=== PATIENT | female | born 1970 | race African-American/Black ===

== ENCOUNTER 2017-11-18 10:18 | Observation (INO) | payer BC ==
[~2017-11-18] VITALS: Ht 170.2 cm; Wt 110.7 kg
[2017-11-18] MEDS ORDERED: DEXT 5%/LR + PITOCIN 20UNITS/L 1,000 ML IV SCH (10:35)
[2017-11-18] MEDS ORDERED: NALOXONE HCL 0.4 MG/ML 1ML VIAL IM PRN (10:45)
[2017-11-18] MEDS ORDERED: METHYLERGONOVINE MALEATE 0.2 MG/ML IM PRN (10:45)
[2017-11-18] MEDS ORDERED: TERBUTALINE SULFATE 1MG/ML VIAL SUBCUT PRN (10:45)
[2017-11-18] MEDS ORDERED: CARBOPROST TROMETHAMINE 250 MCG/ML AMPUL IM PRN (10:45)
[2017-11-18] MEDS ORDERED: MAGNESIUM 4 G PREMIX 100 ML IV SCH (10:45)
[2017-11-18] MEDS ORDERED: MAGNESIUM 4 GM IV SCH (10:45)
[2017-11-18] MEDS: BETAMETHASONE ACET/BETAMET 30 MG/5 ML VIAL IM SCH (11:07)
[2017-11-18] MEDS ORDERED: LIDOCAINE HCL 1% 20ML VIAL (Pyxis) INJ ONE (11:24)
[2017-11-18] MEDS: MAGNESIUM 20 G PREMIX (L & D) 500 ML IV SCH ×2 (11:31→20:34)
[2017-11-18] MEDS: CEFAZOLIN 2,000 MG in DEXT 5% WATER 100 ML IV SCH ×2 (11:50→20:29)
[2017-11-18 12:04] LABS: BASOPHILS % 0.2 % (0.0-2.0); EOSINOPHILS % 0.1 % (0.0-5.0); HEMATOCRIT. 36.3 % (36.0-48.0); HEMOGLOBIN. 12.1 g/dL (12.0-16.0); LYMPHOCYTES % 18.1 % (20.0-50.0); MEAN CORPUSCULAR HEMOGLOBIN 29.5 pg (28.0-32.0); MEAN CORPUSCULAR VOLUME 88.4 fL (81.0-99.0); MEAN PLATELET VOLUME 8.1 fl (7.4-10.4); MONOCYTES % 3.8 % (2.0-8.0); NEUTROPHILS % 77.8 % (40.0-76.0); PLATELET 189 x1000/uL (130-400); RED BLOOD CELL COUNT 4.11 mill/uL (4.2-5.4); RED CELL DISTRIBUTION WIDTH 13.6 % (11.6-14.6)
[2017-11-18 12:09] LABS: INR 0.9; PARTIAL THROMBOPLASTIN TIME 24.6 sec (23.4-31.0); PROTHROMBIN TIME 9.4 sec (9.4-11.6)
[2017-11-18] MEDS: LACTATED RINGERS 1,000 ML IV SCH (12:14)
[2017-11-18 12:46] LABS: CLARITY URINE CLEAR (CLEAR); COLOR URINE YELLOW (YELLOW); KETONES URINE 3+ (NEGATIVE); LEUKOCYTE ESTERASE URINE NEGATIVE (NEGATIVE); NITRITE URINE NEGATIVE (NEGATIVE); OCCULT BLOOD URINE NEGATIVE (NEGATIVE); PROTEIN URINE 1+ (NEGATIVE); SPECIFIC GRAVITY URINE 1.023 (1.005-1.030); UROBILINOGEN URINE 0.2 E.U./dL (0.2-1.0)
[2017-11-18 13:14] LABS: RUBELLA IGG 173.2 IU/mL (4.99-10)
[2017-11-18 13:15] LABS: HEPATITIS B SURFACE ANTIGEN NEGATIVE
[2017-11-18 13:35] LABS: *AMPHETAMINES SCREEN URINE NEGATIVE (NEGATIVE); *BARBITURATES SCREEN URINE NEGATIVE (NEGATIVE); *BENZODIAZEPINES SCREEN URINE NEGATIVE (NEGATIVE); *COCAINE SCREEN URINE NEGATIVE (NEGATIVE); CANNABINOID URINE SCREEN NEGATIVE (NEGATIVE); METHADONE URINE SCREEN NEGATIVE (NEGATIVE); OPIATES URINE SCREEN NEGATIVE (NEGATIVE); PHENCYCLIDINE URINE SCREEN NEGATIVE (NEGATIVE)
[2017-11-18] MEDS ORDERED: ACETAMINOPHEN 500MG TABLET PO PRN (14:15)
[2017-11-18 20:34] VITALS: BP 117/69
[2017-11-19] MEDS: LACTATED RINGERS 1,000 ML IV SCH (00:24)
[2017-11-19] MEDS: CEFAZOLIN 2,000 MG in DEXT 5% WATER 100 ML IV SCH ×2 (04:10→11:42)
[2017-11-19] MEDS: BETAMETHASONE ACET/BETAMET 30 MG/5 ML VIAL IM SCH (11:04)
[2017-11-19] MEDS ORDERED: PNV1TABL76 MT (13:48)
== END 2017-11-19 15:00 | disposition home or self-care (01) ==
LOC: L&D 10:18
PROVIDERS: ADMIT Obstetrics & Gynecology Obstetrics; ATTEND Obstetrics & Gynecology Obstetrics
DX: O60.03 Preterm labor without delivery, third trimester (principal); O09.93 Supervision of high risk pregnancy, unspecified, third trimester; Z3A.31 31 weeks gestation of pregnancy
CPT/HCPCS: 36415; 80305; 81001; 83735; 85025; 85610; 85730; 86592; 86703; 86762; 86850; 86900; 86901; 87340; 96361; 96365; 96366; 96368; 96372; G0378; J0690; J0702; J3105; J3475; J3490; J7120; 59412; 96360; 99281; J7060; A4315

== ENCOUNTER 2017-12-07 15:22 | Observation (INO) | payer BC ==
[~2017-12-07] VITALS: Ht 170.2 cm; Wt 108.0 kg
[~2017-12-07 15:22] MED LIST: PNV1TABL76 MT
[2017-12-07] MEDS ORDERED: LACTATED RINGERS 1,000 ML IV SCH (18:00)
[2017-12-07] MEDS ORDERED: TERBUTALINE SULFATE 1MG/ML VIAL SUBCUT NR ×2 (18:24→19:45)
[2017-12-07] MEDS: LACTATED RINGERS 1,000 ML IV SCH (20:05)
[2017-12-07] MEDS ORDERED: BUTORPHANOL TARTRATE 2 MG/ML VIAL IV PRN (21:45)
[2017-12-07 21:53] VITALS: BP 109/64
[2017-12-07 22:10] LABS: CLARITY URINE CLEAR (CLEAR); COLOR URINE YELLOW (YELLOW); KETONES URINE 3+ (NEGATIVE); LEUKOCYTE ESTERASE URINE NEGATIVE (NEGATIVE); NITRITE URINE NEGATIVE (NEGATIVE); OCCULT BLOOD URINE NEGATIVE (NEGATIVE); PH URINE 5.5 (4.5-8.0); PROTEIN URINE NEGATIVE (NEGATIVE); SPECIFIC GRAVITY URINE 1.018 (1.005-1.030); UROBILINOGEN URINE 0.2 E.U./dL (0.2-1.0)
[2017-12-08] MEDS: LACTATED RINGERS 1,000 ML IV SCH (04:37)
== END 2017-12-08 13:19 | disposition home or self-care (01) ==
LOC: L&D 15:22
PROVIDERS: ADMIT Obstetrics & Gynecology Obstetrics; ATTEND Obstetrics & Gynecology Obstetrics
DX: O60.03 Preterm labor without delivery, third trimester (principal); O30.033 Twin pregnancy, monochorionic/diamniotic, third trimester; O48.1 Prolonged pregnancy; O99.013 Anemia complicating pregnancy, third trimester; D64.9 Anemia, unspecified; Z3A.33 33 weeks gestation of pregnancy
CPT/HCPCS: 36415; 76805; 76810; 76815; 76818; 81003; 82731; 86850; 86900; 86901; 87086; 96361; 96372; 96374; 99285; G0378; J0595; J3105; J7120; 96360; 99281

== ENCOUNTER 2017-12-21 10:28 | Inpatient (IN) | payer BC ==
[~2017-12-21] VITALS: Ht 170.2 cm; Wt 114.8 kg
[2017-12-21] MEDS ORDERED: LEVO25TA2 PO (10:51)
[2017-12-21] MEDS ORDERED: LIDOCAINE HCL 1% 20ML VIAL (Pyxis) INJ ONE (12:05)
[2017-12-21] MEDS: LACTATED RINGERS 1,000 ML IV SCH ×2 (12:11→15:24)
[2017-12-21 12:33] LABS: CLARITY URINE CLOUDY (CLEAR); COLOR URINE YELLOW (YELLOW); KETONES URINE NEGATIVE (NEGATIVE); LEUKOCYTE ESTERASE URINE NEGATIVE (NEGATIVE); NITRITE URINE NEGATIVE (NEGATIVE); OCCULT BLOOD URINE NEGATIVE (NEGATIVE); PROTEIN URINE TRACE (NEGATIVE); SPECIFIC GRAVITY URINE 1.015 (1.005-1.030); UROBILINOGEN URINE 0.2 E.U./dL (0.2-1.0)
[2017-12-21 12:33] LABS: BASOPHILS % 0.3 % (0.0-2.0); EOSINOPHILS % 0.3 % (0.0-5.0); HEMATOCRIT. 34.3 % (36.0-48.0); HEMOGLOBIN. 11.7 g/dL (12.0-16.0); LYMPHOCYTES % 21.3 % (20.0-50.0); MEAN CORPUSCULAR HEMOGLOBIN 29.9 pg (28.0-32.0); MEAN CORPUSCULAR VOLUME 87.7 fL (81.0-99.0); MEAN PLATELET VOLUME 8.3 fl (7.4-10.4); MONOCYTES % 5.9 % (2.0-8.0); NEUTROPHILS % 72.2 % (40.0-76.0); PLATELET 190 x1000/uL (130-400); RED BLOOD CELL COUNT 3.91 mill/uL (4.2-5.4); RED CELL DISTRIBUTION WIDTH 14.1 % (11.6-14.6)
[2017-12-21 12:42] LABS: INR 0.9; PARTIAL THROMBOPLASTIN TIME 22.8 sec (23.4-31.0); PROTHROMBIN TIME 9.7 sec (9.4-11.6)
[2017-12-21 12:46] LABS: *AMPHETAMINES SCREEN URINE NEGATIVE (NEGATIVE); *BARBITURATES SCREEN URINE NEGATIVE (NEGATIVE); *BENZODIAZEPINES SCREEN URINE NEGATIVE (NEGATIVE); *COCAINE SCREEN URINE NEGATIVE (NEGATIVE); CANNABINOID URINE SCREEN NEGATIVE (NEGATIVE); METHADONE URINE SCREEN NEGATIVE (NEGATIVE); OPIATES URINE SCREEN NEGATIVE (NEGATIVE); PHENCYCLIDINE URINE SCREEN NEGATIVE (NEGATIVE)
[2017-12-21] MEDS ORDERED: DEXT 5%/LACTATED RINGERS 1,000 ML IV SCH (14:37)
[2017-12-21] MEDS ORDERED: LACTATED RINGERS 1,000 ML IV SCH (14:37)
[2017-12-21] MEDS ORDERED: CARBOPROST TROMETHAMINE 250 MCG/ML AMPUL IM PRN (14:45)
[2017-12-21] MEDS ORDERED: METHYLERGONOVINE MALEATE 0.2 MG/ML IM PRN (14:45)
[2017-12-21] MEDS ORDERED: DEXT 5%/LR + PITOCIN 20UNITS/L 1,000 ML IV ONE (14:50)
[2017-12-21] MEDS ORDERED: CITRIC ACID/SODIUM CITRATE SOLN 30ML UDC PO SCH (15:00)
[2017-12-21] MEDS ORDERED: CEFAZOLIN SODIUM 1000MG/VIAL ONE (15:23)
[2017-12-21] MEDS ORDERED: PHENYLEPHRINE HCL 10 MG/ML 1ML (IV VIAL) IV ONE (15:23)
[2017-12-21] MEDS ORDERED: EPHEDRINE SULFATE 50MG/ML VIAL ONE (15:23)
[2017-12-21] MEDS ORDERED: OXYTOCIN 10 UNITS/ML 1ML ONE ×2 (15:23→18:01)
[2017-12-21] MEDS ORDERED: FENTANYL CITRATE/PF 50MCG/ML 2ML VIAL ONE (15:24)
[2017-12-21] MEDS ORDERED: MORPHINE SULFATE/PF 1MG/ML 10ML AMP ONE (15:24)
[2017-12-21] MEDS ORDERED: DIPHENHYDRAMINE 50MG/ML VIAL ONE (15:24)
[2017-12-21] MEDS ORDERED: GLYCOPYRROLATE 0.2 MG/ML 2ML VIAL ONE (15:24)
[2017-12-21] MEDS ORDERED: ONDANSETRON HCL 4MG/2ML VIAL ONE (15:24)
[2017-12-21 16:51] LABS: CLARITY URINE CLEAR (CLEAR); COLOR URINE YELLOW (YELLOW); KETONES URINE 2+ (NEGATIVE); LEUKOCYTE ESTERASE URINE NEGATIVE (NEGATIVE); NITRITE URINE NEGATIVE (NEGATIVE); OCCULT BLOOD URINE NEGATIVE (NEGATIVE); PROTEIN URINE NEGATIVE (NEGATIVE); SPECIFIC GRAVITY URINE 1.014 (1.005-1.030); UROBILINOGEN URINE 0.2 E.U./dL (0.2-1.0)
[2017-12-21] MEDS ORDERED: LANOLIN OINT 0.25 GM TUBE TOP PRN (17:45)
[2017-12-21] MEDS ORDERED: DIPHENHYDRAMINE 50MG/ML VIAL IV PRN (19:00)
[2017-12-21] MEDS ORDERED: NALOXONE HCL 0.4 MG/ML 1ML VIAL IV PRN (19:00)
[2017-12-21 20:25] LABS: HEPATITIS B SURFACE ANTIGEN NEGATIVE; RUBELLA IGG 149.9 IU/mL (4.99-10)
[2017-12-21] MEDS ORDERED: LABETALOL 5MG/ML SYR 20 MG/4 ML SYRINGE IV ONE ×2 (20:30)
[2017-12-21] MEDS: KETOROLAC 30MG/ML VIAL IV PRN (21:43)
[2017-12-21] MEDS: LABETALOL HCL 200MG TABLET PO SCH (21:44)
[2017-12-21] MEDS: DEXT 5%/LR + PITOCIN 20UNITS/L 1,000 ML IV SCH (21:46)
[2017-12-21 22:30] VITALS: BP 125/62
[2017-12-21 23:00] VITALS: BP 111/61
[2017-12-21 23:30] VITALS: BP 106/58
[2017-12-22] VITALS (7 sets, daily range): BP systolic 100–125; BP diastolic 50–76
[2017-12-22] MEDS: DEXT 5%/LR + PITOCIN 20UNITS/L 1,000 ML IV SCH ×2 (01:32→09:32)
[2017-12-22] MEDS: LACTATED RINGERS 1,000 ML IV SCH (03:45)
[2017-12-22 07:13] LABS: BASOPHILS % 0.3 % (0.0-2.0); EOSINOPHILS % 0.5 % (0.0-5.0); HEMATOCRIT. 29.5 % (36.0-48.0); HEMOGLOBIN. 9.9 g/dL (12.0-16.0); LYMPHOCYTES % 19.1 % (20.0-50.0); MEAN CORPUSCULAR HEMOGLOBIN 30.4 pg (28.0-32.0); MEAN CORPUSCULAR VOLUME 90.3 fL (81.0-99.0); MONOCYTES % 6.6 % (2.0-8.0); NEUTROPHILS % 73.5 % (40.0-76.0); PLATELET 135 x1000/uL (130-400); RED BLOOD CELL COUNT 3.26 mill/uL (4.2-5.4); RED CELL DISTRIBUTION WIDTH 14.1 % (11.6-14.6)
[2017-12-22] MEDS: LABETALOL HCL 200MG TABLET PO SCH (08:51)
[2017-12-22] MEDS: IBUPROFEN 800MG TABLET PO PRN ×2 (14:01→23:45)
[2017-12-22] MEDS: PRENATAL VIT/FE FUMARATE/FA TABLET PO SCH (14:01)
[2017-12-22] MEDS: DOCUSATE SODIUM 100MG CAPSULE PO SCH ×2 (21:00→21:37)
[2017-12-22] MEDS: HYDROCODONE/ACETAMINOPHEN 5/325MG TABLET PO PRN (21:36)
[2017-12-23] VITALS (7 sets, daily range): BP systolic 110–123; BP diastolic 60–78
[2017-12-23] MEDS: IBUPROFEN 800MG TABLET PO PRN ×3 (07:07→19:29)
[2017-12-23] MEDS: LABETALOL HCL 200MG TABLET PO SCH ×3 (09:00→21:09)
[2017-12-23] MEDS: KETOROLAC 30MG/ML VIAL IV PRN (09:43)
[2017-12-23] MEDS ORDERED: BISACODYL 10MG SUPP PR PRN (09:45)
[2017-12-23] MEDS: FERROUS SULFATE 325MG TABLET PO SCH ×3 (10:14→17:36)
[2017-12-23] MEDS: PRENATAL VIT/FE FUMARATE/FA TABLET PO SCH (10:14)
[2017-12-23] MEDS ORDERED: IBUPROFEN 400MG TABLET PO PRN (18:45)
[2017-12-23] MEDS: DOCUSATE SODIUM 100MG CAPSULE PO SCH (21:08)
[2017-12-24 04:13] VITALS: BP 126/73
[2017-12-24] MEDS: IBUPROFEN 800MG TABLET PO PRN ×3 (04:13→16:23)
[2017-12-24 08:00] VITALS: BP 140/82
[2017-12-24 09:00] VITALS: BP 120/70
[2017-12-24] MEDS: PRENATAL VIT/FE FUMARATE/FA TABLET PO SCH (09:21)
[2017-12-24] MEDS: FERROUS SULFATE 325MG TABLET PO SCH ×2 (09:21→16:23)
[2017-12-24] MEDS: LABETALOL HCL 200MG TABLET PO SCH ×2 (09:28→21:04)
[2017-12-24 16:00] VITALS: BP 126/73
[2017-12-24] MEDS: HYDROCODONE/ACETAMINOPHEN 5/325MG TABLET PO PRN ×2 (19:04→23:30)
[2017-12-24 19:25] VITALS: BP 142/75
[2017-12-24] MEDS: DOCUSATE SODIUM 100MG CAPSULE PO SCH (21:04)
[2017-12-24 23:30] VITALS: BP 138/85
[2017-12-25 06:00] VITALS: BP 138/80
[2017-12-25] MEDS: IBUPROFEN 800MG TABLET PO PRN (06:10)
[2017-12-25] MEDS: LABETALOL HCL 200MG TABLET PO SCH (09:27)
[2017-12-25] MEDS: FERROUS SULFATE 325MG TABLET PO SCH (09:27)
[2017-12-25] MEDS: PRENATAL VIT/FE FUMARATE/FA TABLET PO SCH (09:27)
[2017-12-25 09:30] VITALS: BP 124/80
[2017-12-25 09:33] VITALS: BP 124/80
[2017-12-25] MEDS: HYDROCODONE/ACETAMINOPHEN 5/325MG TABLET PO PRN (09:33)
== END 2017-12-25 16:00 | disposition home or self-care (01) | DRG 765 ==
LOC: L&D 10:28 → OBSVTOIN 10:28 → 7EST PP/OB 17:03 → L&D 17:05 → 7EST PP/OB 22:25
PROVIDERS: ADMIT Obstetrics & Gynecology Obstetrics; ATTEND Obstetrics & Gynecology Obstetrics
PROC: 10D00Z1 Extraction of Products of Conception, Low, Open Approach (ICD-10-PCS; principal; 2017-12-21 17:58)
DX: O30.043 Twin pregnancy, dichorionic/diamniotic, third trimester (principal); O36.5930 Maternal care for other known or suspected poor fetal growth, third trimester, not applicable or unspecified; Z37.2 Twins, both liveborn; O13.4 Gestational [pregnancy-induced] hypertension without significant proteinuria, complicating childbirth; O32.1XX0 Maternal care for breech presentation, not applicable or unspecified; O34.211 Maternal care for low transverse scar from previous cesarean delivery; Z3A.35 35 weeks gestation of pregnancy; Z79.899 Other long term (current) drug therapy; O09.523 Supervision of elderly multigravida, third trimester
CPT/HCPCS: 36415; 76805; 76810; 76815; 76818; 80305; 81003; 85025; 85610; 85730; 86592; 86703; 86762; 86850; 86900; 86920; 87086; 87340; 88307; 93005; J0690; J1200; J1885; J2210; J2274; J2370; J2405; J2590; J3010; J3490; J7120; J7121; A4315